=== PATIENT | female | born 1960 | race Caucasian/White ===

== ENCOUNTER 2021-04-14 17:46 | Outpatient (REF) | payer BC, SELFPAY ==
--- NOTE | 2021-04-14 15:50 | SKI_PTH ---
PATIENT: Claudine Chang LOC: NCN #:[id number] AGE/SX: 61/F ROOM: RE04/14/[address]: Ladan Miramontes : 1960 BED: DIS: 04/14/2021 SPEC #: [id number] RECD: 04/14/21 18:02 STATUS: NOE SHER #: [id number] TANYA: 04/14/21 15:[address]: Ladan Miramontes DEPT: Surgical Specimen RECD BY: Leah Ballard Tissues: 1 - SKIN BIOPSY(SHAVE/PUNCH) Procedures: IMMUNOPEROXIDASE STAIN SKIN LEVEL 4 Comments: [id number]
== END 2021-04-14 17:47 | disposition home or self-care (01) ==
LOC: NCHCN 17:46
PROVIDERS: PCP Physician Assistant; Visit Provider Physician Assistant
DX: D22.5 Melanocytic nevi of trunk (principal)
CPT/HCPCS: 88305; 88361

== ENCOUNTER 2021-11-27 16:22 | Outpatient (REF) | payer BC, SELFPAY ==
[2021-11-27 18:54] LABS: Abs Immature Grans 0.02 10^3/uL (0.0-0.06); Absolute Basophil Count 0.06 10^3/uL (0.0-0.2); Absolute Eosinophil Count 0.11 10^3/uL (0.0-0.7); Absolute Lymphocyte Count 1.07 10^3/uL (1.2-3.4); Absolute Monocyte Count 0.81 10^3/uL (0.1-0.8); Absolute Neutrophil Count 8.03 10^3/uL (1.2-6.7); Basophils % 0.6; Eosinophils % 1.1; HCT 46.1 % (36.0-46.0); HGB 14.9 g/dL (11.2-15.7); Immature Grans % 0.2; Lymphocytes % 10.6; MCH 26.6 pg (27.0-33.0); MCHC 32.3 % (32.0-36.0); MCV 82.2 fL (80-95); MPV 9.9 fL (8.0-11.0); Neutrophils % 79.5; Nucleated RBC 0 %; Platelet Count 293 10^3/uL (130-400); RBC 5.61 10^6/uL (3.93-5.22); RDW 13.2 % (11.7-14.6); RDW-SD 39.2 fL
[2021-11-27 19:16] LABS: ALT 19 U/L (14-59); AST 13 U/L (15-37); Albumin 3.8 g/dL (3.4-5.0); Alkaline Phosphatase 90 U/L (46-116); Anion Gap 9.7 mmol/L (3-11); BUN 8 mg/dL (7-18); Bilirubin, Total 0.9 mg/dL (0.2-1.0); CO2 26.3 mmol/L (21.0-32.0); CREATININE 0.9 mg/dL (0.55-1.02); Calcium 9.1 mg/dL (8.5-10.1); Chloride 104 mmol/L (98-107); Glucose 94 mg/dL (74-106); Sodium 140 mmol/L (136-145); Total Protein 6.8 g/dL (6.4-8.2)
== END 2021-11-27 16:23 | disposition home or self-care (01) ==
LOC: NCHCN 16:22
PROVIDERS: PCP Physician Assistant; Visit Provider Physician Assistant
DX: R10.30 Lower abdominal pain, unspecified (principal)
CPT/HCPCS: 80053; 85025

== ENCOUNTER 2023-06-10 14:01 | Outpatient (REF) | payer MEDICARE, BC, SELFPAY ==
[2023-06-10 19:29] LABS: Vitamin D 25 Total 27.1 ng/mL (30-100)
[2023-06-10 19:31] LABS: ALT 26 U/L (14-59); AST 19 U/L (15-37); Albumin 3.8 g/dL (3.4-5.0); Alkaline Phosphatase 85 U/L (46-116); Anion Gap 7.5 mmol/L (3-11); BUN 14 mg/dL (7-18); Bilirubin, Total 0.6 mg/dL (0.2-1.0); CO2 27.5 mmol/L (21.0-32.0); Calcium 9.5 mg/dL (8.5-10.1); Chloride 103 mmol/L (98-107); Estimated GFR 62.52 (mL/min/1.73m2); Glucose 82 mg/dL (74-106); LDL CHOLESTEROL 131 mg/dL (<100); Potassium 4.4 mmol/L (3.5-5.1); Sodium 138 mmol/L (136-145); Total Protein 7.5 g/dL (6.4-8.2); Vitamin B12 988 pg/mL (193-986)
== END 2023-06-10 14:02 | disposition home or self-care (01) ==
LOC: NCHCN 14:01
PROVIDERS: PCP Physician Assistant; Visit Provider Physician Assistant
DX: Z00.00 Encounter for general adult medical examination without abnormal findings (principal); E55.9 Vitamin D deficiency, unspecified; E53.8 Deficiency of other specified B group vitamins; E78.5 Hyperlipidemia, unspecified
CPT/HCPCS: 80053; 82306; 83721; 82607

== ENCOUNTER 2023-08-05 19:29 | Outpatient (REF) | payer MEDICARE, BC, SELFPAY ==
[2023-08-05 19:18] LABS: Abs Immature Grans 0.02 10^3/uL (0.0-0.06); Absolute Basophil Count 0.06 10^3/uL (0.0-0.2); Absolute Eosinophil Count 0.13 10^3/uL (0.0-0.7); Absolute Lymphocyte Count 1.22 10^3/uL (1.2-3.4); Absolute Monocyte Count 0.67 10^3/uL (0.1-0.8); Absolute Neutrophil Count 6.85 10^3/uL (1.2-6.7); Basophils % 0.7; Eosinophils % 1.5; HCT 43.9 % (36.0-46.0); HGB 14.5 g/dL (11.2-15.7); Immature Grans % 0.2; Lymphocytes % 13.6; MCV 82 fL (80-95); MPV 10.3 fL (8.0-11.0); Monocytes % 7.5; Neutrophils % 76.5; Platelet Count 256 10^3/uL (130-400); RBC 5.37 10^6/uL (3.93-5.22); RDW 12.6 % (11.7-14.6); RDW-SD 37.6 fL; WBC 8.95 10^3/uL (4.4-10.8)
[2023-08-05 19:23] LABS: Anion Gap 5.2 mmol/L (3-11); BUN 12 mg/dL (7-18); CO2 29.8 mmol/L (21.0-32.0); Calcium 9.4 mg/dL (8.5-10.1); Chloride 100 mmol/L (98-107); Estimated GFR 62.52 (mL/min/1.73m2); Glucose 120 mg/dL (74-106); Potassium 3.6 mmol/L (3.5-5.1); Sodium 135 mmol/L (136-145)
== END 2023-08-05 19:30 | disposition home or self-care (01) ==
LOC: NCHCN 19:29
PROVIDERS: PCP Physician Assistant; Visit Provider Internal Medicine
DX: K57.92 Diverticulitis of intestine, part unspecified, without perforation or abscess without bleeding (principal)
CPT/HCPCS: 80048; 85025

== ENCOUNTER 2024-06-19 13:17 | Outpatient (REF) | payer MEDICARE, BC, SELFPAY ==
[2024-06-19 19:56] LABS: ALT 21 U/L (14-59); AST 15 U/L (15-37); Albumin 3.8 g/dL (3.4-5.0); Alkaline Phosphatase 102 U/L (46-116); Anion Gap 7.4 mmol/L (3-11); BUN 12 mg/dL (7-18); Bilirubin, Total 0.53 mg/dL (0.2-1.0); CO2 28.6 mmol/L (21.0-32.0); Calcium 9.4 mg/dL (8.5-10.1); Calculated LDL 146 mg/dL (<100); Chloride 103 mmol/L (98-107); Cholesterol 248 mg/dL (<200); Estimated GFR 62.13 (mL/min/1.73m2); Glucose 81 mg/dL (74-106); HDL Cholesterol 82 mg/dL (40-60); Sodium 139 mmol/L (136-145); TSH (W/Ref FT4) 3.08 uIU/mL (0.36-3.74); Total Protein 7.6 g/dL (6.4-8.2); Triglyceride 100 mg/dL (<150); Vitamin D 25 Total 29.1 ng/mL (30-100)
[2024-06-21 10:53] LABS: Hepatitis C Ab w Rflx HCV PCR Negative (Negative)
== END 2024-06-19 13:18 | disposition home or self-care (01) ==
LOC: NCHCN 13:17
PROVIDERS: PCP Physician Assistant; Visit Provider Physician Assistant
DX: E78.5 Hyperlipidemia, unspecified (principal); Z11.59 Encounter for screening for other viral diseases; E55.9 Vitamin D deficiency, unspecified
CPT/HCPCS: 80053; 80061; 82306; 86803; 84443

== ENCOUNTER 2025-06-21 15:36 | Outpatient (REF) | payer MEDICARE, BC, SELFPAY ==
[2025-06-21 19:57] LABS: ALT 29 U/L (14-59); AST 28 U/L (15-37); Albumin 3.8 g/dL (3.4-5.0); Alkaline Phosphatase 100 U/L (46-116); Anion Gap 8.4 mmol/L (3-11); BUN 17 mg/dL (7-18); Bilirubin, Total 0.7 mg/dL (0.2-1.0); CO2 27.6 mmol/L (21.0-32.0); Calcium 9.3 mg/dL (8.5-10.1); Chloride 104 mmol/L (98-107); Estimated GFR 61.75 (mL/min/1.73m2); Glucose 87 mg/dL (74-106); Potassium 4.3 mmol/L (3.5-5.1); Sodium 140 mmol/L (136-145); Total Protein 7.4 g/dL (6.4-8.2)
== END 2025-06-21 15:37 | disposition home or self-care (01) ==
LOC: NCHCN 15:36
PROVIDERS: PCP Physician Assistant; Visit Provider Physician Assistant
DX: E78.5 Hyperlipidemia, unspecified (principal)
CPT/HCPCS: 80053